=== PATIENT | female | born 1985 | race Two or more races ===

== ENCOUNTER 2023-06-30 08:08 | Emergency (ER) | payer MEDICAID ==
[~2023-06-30] VITALS: Ht 160 cm; Wt 73.0 kg
[2023-06-30] MEDS ORDERED: ONDANSETRON HCL 4 MG/2 ML VIAL IV ONE ×2 (08:30)
[2023-06-30] MEDS ORDERED: MECLIZINE HCL 25 MG TAB PO ONE (08:30)
[2023-06-30] MEDS ORDERED: ONDANSETRON ODT 4 MG TAB PO ONE (08:45)
[2023-06-30 08:49] LABS: Basophils # (auto) 0 10 ^3/uL (0-0.2); Basophils % (auto) 0.6 % (0.0-2.0); Eosinophils # (auto) 0 10 ^3/uL (0-0.8); Eosinophils % (auto) 0.7 % (0.0-7.0); Hematocrit 36.5 % (36.0-46.0); Hemoglobin 12.4 g/dL (12.2-16.2); Lymphocytes # (auto) 1.9 10 ^3/uL (0.4-5.4); Lymphocytes % (auto) 44.2 % (10.0-50.0); Mean Corpuscular Hemoglobin 28.9 pg (28.0-32.0); Mean Corpuscular Volume 85.1 fL (80.0-100.0); Monocytes # (auto) 0.3 10 ^3/uL (0-1.3); Neutrophils % (auto) 47.5 % (37.0-80.0); Nucleated Red Blood Cells % 0.1 %; Red Blood Cells 4.29 10^6/uL (4.0-5.20); Red Cell Distribution Width 14.3 % (11.8-14.3); White Blood Cell 4.3 10^3/uL (4.4-10.8)
[2023-06-30 08:58] LABS: Albumin 3.8 g/dL (3.4-5.0); BUN/Creatinine Ratio 17.1 (10.0-20.0); Calcium 9.1 mg/dL (8.5-10.1); Potassium 3.9 mmol/L (3.5-5.1)
[2023-06-30 09:01] LABS: Bilirubin, Total 0.3 mg/dL (0.2-1.0); Total Protein 7.9 g/dL (6.4-8.2)
[2023-06-30 09:23] LABS: Urine Bacteria NONE SEEN /hpf (None Seen); Urine Blood Negative /uL (Negative); Urine Budding Yeast MODERATE /hpf (None Seen); Urine Clarity HAZY (Clear); Urine Color Colorless (Yellow); Urine Mucus FEW (None Seen); Urine Protein, UAD Negative (Negative); Urine Specific Gravity 1.013 (1.001-1.035); Urine Urobilinogen Normal (Negative); Urine WBC 1 /hpf (0 - 5)
[2023-06-30 13:55] VITALS: BP 121/72; PULSE 56; RESP 18; TEMP 98.1; O2SAT 98
== END 2023-06-30 13:55 | disposition home or self-care (01) ==
LOC: ER 08:08
DX: R42 Dizziness and giddiness (principal); R10.2 Pelvic and perineal pain; R11.2 Nausea with vomiting, unspecified
CPT/HCPCS: 36415; 80053; 81001; 83690; 84702; 85025; 96374; 99283; J2405; J8597

== ENCOUNTER → 2023-06-30 | Emergency (ER) | payer MEDICAID ==
[~2023-06-30] MED LIST: LEVOTAB; NITR-52 PO; OMEP20CA74 OR; PROM25TA10; SUCR1SUS26 PO; TRAM50TA2 PO
== END | disposition left against medical advice (07) ==
LOC: ER 08:04
DX: R42 Dizziness and giddiness (principal); Z53.21 Procedure and treatment not carried out due to patient leaving prior to being seen by health care provider

== ENCOUNTER 2024-06-19 01:45 | Emergency (ER) | payer MEDICAID ==
[~2024-06-19] VITALS: Ht 157.5 cm; Wt 70.0 kg
[2024-06-19 02:34] VITALS: BP 145/98; PULSE 70; RESP 16; TEMP 98.2; O2SAT 97
[2024-06-19] MEDS: diphenhdrAMINE HCL 12.5 MG/5 ML UD PO ONE (03:24)
[2024-06-19] MEDS: LORATADINE 10 MG TAB PO ONE (03:24)
[2024-06-19] MEDS ORDERED: LORA-622 PO (03:39)
== END 2024-06-19 04:09 | disposition home or self-care (01) ==
LOC: ER 01:45
DX: H10.13 Acute atopic conjunctivitis, bilateral (principal); Z98.890 Other specified postprocedural states; Z79.899 Other long term (current) drug therapy